=== PATIENT | male | born 1960 | race Two or more races ===

== ENCOUNTER 2022-12-30 17:44 | Inpatient (IN) | payer MEDICAID ==
[~2022-12-30] VITALS: Ht 165.1 cm; Wt 95.3 kg
--- NOTE | 2022-12-30 18:26 | NUR ---
C/O ABDOMINAL PAIN STARTED THIS MORNING +NAUSEA. VITALS ARE WITHIN NORMAL LIMITS. AWAITING EVAL.
--- NOTE | 2022-12-30 18:32 | NUR ---
URINE COLLECTED AND SENT
--- NOTE | 2022-12-30 18:59 | NUR ---
IV ESTABLISHED 22G R AC. LABS DRAWN AND SENT
[2022-12-30] MEDS ORDERED: ONDANSETRON HCL/PF 4 MG/2 ML VIAL IVP ONE (19:00)
[2022-12-30] MEDS ORDERED: MORPHINE SULFATE INJ 2 MG/ML DISP.SYRIN IV ONE (19:00)
[2022-12-30] MEDS ORDERED: IV NS 0.9% 1,000 ML BAG IV ONE (19:00)
[2022-12-30] MEDS ORDERED: ONDANSETRON HCL/PF 4 MG/2 ML VIAL ONE (19:07)
[2022-12-30] MEDS ORDERED: MORPHINE SULFATE INJ 4 MG/ML DISP.SYRIN ONE (19:08)
--- NOTE | 2022-12-30 19:23 | NUR ---
PT TAKEN TO CT VIA FELICIANO
[2022-12-30 19:29] LABS: BASOPHILS # (AUTO) 0.1 K/uL (0.0-0.2); BASOPHILS % (AUTO) 0.7 % (0.0-2.0); EOSINOPHILS % (AUTO) 0.2 % (0.0-6.0); HEMATOCRIT 45 % (39-51); HEMOGLOBIN 14.9 g/dL (13.5-17.5); LYMPHOCYTES # (AUTO) 1.1 K/uL (0.8-4.8); LYMPHOCYTES % (AUTO) 7.9 % (20.0-44.0); MEAN CORPUSCULAR HGB CONC 33 g/dl (31.0-36.0); MEAN CORPUSCULAR VOLUME 84 fL (80-96); MONOCYTES # (AUTO) 0.6 K/uL (0.1-1.30); MONOCYTES % (AUTO) 4.2 % (2.0-12.0); NEUTROPHILS # (AUTO) 12.2 K/uL (1.8-8.9); PLATELET COUNT (AUTO) 352 K/uL (150-450); RED BLOOD CELL COUNT(AUTO) 5.28 MIL/uL (4.5-6.0); WHITE BLOOD COUNT (AUTO) 14.1 K/uL (4.3-11.0)
[2022-12-30 19:36] LABS: CALCIUM, SERUM 9.4 mg/dL (8.5-10.1); CREATININE 0.8 mg/dL (0.6-1.3); POTASSIUM 3.6 mmol/L (3.5-5.1)
[2022-12-30 19:39] LABS: BILIRUBIN,URINE NEGATIVE (NEGATIVE); COLOR,URINE YELLOW (YELLOW); LEUKOCYTE ESTERASE ,URINE NEGATIVE (NEGATIVE); NITRITE, URINE NEGATIVE (NEGATIVE); PH,URINE 7.5 (5.0-8.0); PROTEIN,URINE 1+ mg/dl (NEGATIVE); UGLUCOSE NEGATIVE (NEGATIVE); UROBILINOGEN,URINE 0.2 EU/dL (0.2)
[2022-12-30 19:42] LABS: BILIRUBIN,DIRECT 0.1 mg/dL (0.0-0.2); BILIRUBIN,TOTAL 0.6 mg/dL (0.2-1.0); TOTAL PROTEIN, SERUM 8.2 g/dL (6.4-8.2)
--- NOTE | 2022-12-30 19:42 | NUR ---
Patient AOx4, able to express concerns. Patient just came back from imaging. No signs of distress or discomfort. Discussed plan of care, patietn verbalized agreement.
[2022-12-30 19:50] LABS: BACTERIA,URINE None seen /HPF (None Seen); RBC,URINE 0-2 /HPF (0-2); SQUAMOUS EPITHELIAL CELL,UR 0-2 /HPF (None Seen); URINE AMORPHOUS PHOSPHATES Moderate /HPF (None Seen); WBC,URINE 0-2 /HPF (0-3)
[2022-12-30] MEDS ORDERED: VANCOMYCIN 1 GM in IV D5W 250 ML IV ONE (20:00)
[2022-12-30] MEDS ORDERED: PIPERACI/TAZO 3.375GM/D5W 50ML PB IV ONE (20:00)
[2022-12-30] MEDS ORDERED: PIPERACILLIN /TAZOBACTAM 3.375 G in IV D5W 50 ML IV ONE (20:00)
[2022-12-30] MEDS ORDERED: VANCOMYCIN 1 GM /D5W 250 ML PB IV ONE (20:00)
--- NOTE | 2022-12-30 20:33 | NUR ---
MOVE SHEET SUBMITTED
--- NOTE | 2022-12-30 20:44 | NUR ---
GEN SURG PAGED - NO ANSWER- LEFT MESSAGE AWAITING CALLBACK
[2022-12-30] MEDS ORDERED: MAGNESIUM HYDROXIDE 30 ML UDC PO PRN (21:30)
[2022-12-30] MEDS ORDERED: MAG HYDROX/AL HYDROX/SIMETH 30 ML UDC PO PRN (21:30)
[2022-12-30] MEDS ORDERED: ACETAMINOPHEN 325 MG TABLET PO PRN (21:30)
[2022-12-30] MEDS ORDERED: ZOLPIDEM TARTRATE 5 MG TABLET PO PRN ×2 (21:30→22:45)
[2022-12-30] MEDS ORDERED: ONDANSETRON HCL/PF 4 MG/2 ML VIAL IVP PRN (21:30)
[2022-12-30] MEDS ORDERED: Z GUARD REMEDY 4 OZ OINT TP PRN ×2 (21:30→22:45)
[2022-12-30] MEDS ORDERED: MORPHINE SULFATE INJ 2 MG/ML DISP.SYRIN ONE (22:35)
[2022-12-30] MEDS: MORPHINE SULFATE INJ 2 MG/ML DISP.SYRIN IV PRN (22:36)
--- NOTE | 2022-12-31 00:30 | NUR ---
Zosyn dose not administered, last dose given at 2000
[2022-12-31] MEDS: IV NS 0.9% 1,000 ML IV PRN ×3 (02:24→22:25)
[2022-12-31] MEDS ORDERED: MORPHINE SULFATE INJ 2 MG/ML DISP.SYRIN ONE (03:23)
[2022-12-31] MEDS: MORPHINE SULFATE INJ 2 MG/ML DISP.SYRIN IV PRN ×2 (03:24→09:44)
--- NOTE | 2022-12-31 03:27 | NUR ---
Munira AOx4, able to express his concerns. Patient states pain is comming back, requesting pain medication. Patient educated on importance of remaining NPO, verbalized understanding. All safety precautions followed, will continue to monitor.
[2022-12-31 05:32] LABS: BASOPHILS # (AUTO) 0.1 K/uL (0.0-0.2); BASOPHILS % (AUTO) 0.5 % (0.0-2.0); EOSINOPHILS % (AUTO) 0.1 % (0.0-6.0); HEMATOCRIT 42 % (39-51); HEMOGLOBIN 13.9 g/dL (13.5-17.5); LYMPHOCYTES # (AUTO) 1.2 K/uL (0.8-4.8); LYMPHOCYTES % (AUTO) 8.1 % (20.0-44.0); MEAN CORPUSCULAR HGB CONC 33 g/dl (31.0-36.0); MEAN CORPUSCULAR VOLUME 84 fL (80-96); MONOCYTES # (AUTO) 1.2 K/uL (0.1-1.30); MONOCYTES % (AUTO) 7.9 % (2.0-12.0); NEUTROPHILS # (AUTO) 12.7 K/uL (1.8-8.9); NEUTROPHILS % (AUTO) 83.4 % (43.0-81.0); PLATELET COUNT (AUTO) 330 K/uL (150-450); RED BLOOD CELL COUNT(AUTO) 4.95 MIL/uL (4.5-6.0); WHITE BLOOD COUNT (AUTO) 15.2 K/uL (4.3-11.0)
[2022-12-31 05:50] LABS: CALCIUM, SERUM 8.8 mg/dL (8.5-10.1); CREATININE 0.7 mg/dL (0.6-1.3); MAGNESIUM 2.3 mg/dL (1.8-2.4); PHOSPHORUS 3.2 mg/dL (2.5-4.9); POTASSIUM 3.7 mmol/L (3.5-5.1)
[2022-12-31] MEDS ORDERED: PIPERACI/TAZO 3.375GM/D5W 50ML PB IV ONE (06:33)
[2022-12-31] MEDS: PIPERACILLIN /TAZOBACTAM 3.375 G in IV D5W 50 ML IV SCH ×4 (06:34→13:09)
[2022-12-31 07:30] VITALS: BP 156/87
--- NOTE | 2022-12-31 07:30 | NUR ---
BED ASSIGNED 306-2
--- NOTE | 2022-12-31 08:44 | NUR ---
report given to nidhi for contiuation of care
--- NOTE | 2022-12-31 08:45 | NUR ---
RECEIVED REPORT FROM ER NURSE AARTI
[2022-12-31] MEDS ORDERED: PANTOPRAZOLE 40 MG VIAL IV SCH ×2 (09:00→09:15)
--- NOTE | 2022-12-31 09:00 | NUR ---
MS DOUGH CUTTING MACHINE OPERATOR NOTES RECEIVED PT VIA GURNEY AT 0900. PT IS ALERT/ORIENTED X4, AMBULATORY, STABLE ON ROOM AIR. PAIN 10/10 ON RLQ DUE TO APPENDICITIS. IV ACCESS ON RAC #22 G SL. HAS DRY SKIN PATCHES R/T PSORIASIS, OTHERWISE SKIN INTACT. PT ON NPO STATUS. ALL BELONGINGS CHECKED. PRE VITALS TAKEN. FALL SAFETY MEASURES IN PLACED. BED LOCKED IN LOWEST POSITION, SIDE RAILS UP X2, CALL LIGHT WITHIN REACH. WILL ADMINISTER ALL SCHEDULED AND PRN MEDS. WILL CONTINUE TO MONITOR.
[2022-12-31] MEDS ORDERED: MAGNESIUM HYDROXIDE 30 ML UDC PO PRN (09:15)
[2022-12-31] MEDS ORDERED: ACETAMINOPHEN 325 MG TABLET PO PRN (09:15)
[2022-12-31] MEDS ORDERED: MAG HYDROX/AL HYDROX/SIMETH 30 ML UDC PO PRN (09:15)
[2022-12-31] MEDS ORDERED: ONDANSETRON HCL/PF 4 MG/2 ML VIAL IVP PRN (09:15)
[2022-12-31 16:00] VITALS: BP 164/85
[2022-12-31] MEDS: ZOSYN IVPB 3.375 G in IV D5W 50ml IV SCH (18:27)
--- NOTE | 2022-12-31 18:41 | NUR ---
MS RN CLOSING NOTES PT RESTING IN BED, PT IS ALERT/ORIENTED X4, AMBULATORY, STABLE ON ROOM AIR. PAIN 6/10 ON RLQ DUE TO APPENDICITIS. IV ACCESS ON L HAND #20 G SRUNNING NS @100 ML/HR, WITH IV ZOSYN INFUSING. HAS DRY SKIN PATCHES R/T PSORIASIS, OTHERWISE SKIN INTACT. PT ON NPO STATUS. SURGERY AT 8PM FOR APPENDECTOMY. ALL CONSENTS SIGNED WITH THE PATIENT. FALL SAFETY MEASURES IN PLACED. BED LOCKED IN LOWEST POSITION, SIDE RAILS UP X2, CALL LIGHT WITHIN REACH. ALL SCHEDULED ,MEDS GIVEN, WILL ENDORSE TO NEXT SHIFT.
[2022-12-31 20:00] VITALS: BP 145/88
--- NOTE | 2022-12-31 20:00 | NUR ---
RN NOTES PATIENT SENT TO OPERATING ROOM. WITH STABLE VITAL SIGNS. REPORT GIVEN TO OR NURSE. WILL CONTINUE TO MONITOR.
[2022-12-31] MEDS ORDERED: FENTANYL PF 100MCG/2ML AMPUL ONE (20:10)
[2022-12-31] MEDS ORDERED: HYDROMORPHONE INJ 2 MG/ML DISP.SYRIN ONE (20:10)
[2022-12-31] MEDS ORDERED: MEPERIDINE25 MG SYR 25 MG/ML VIAL ONE (20:10)
[2022-12-31] MEDS ORDERED: MIDAZOLAM HCL 2 MG/2ML VIAL ONE (20:10)
[2022-12-31] MEDS ORDERED: DEXAMETHASONE SOD PHOSPHATE 4 MG/ML VIAL ONE (20:10)
[2022-12-31] MEDS ORDERED: ROCURONIUM BROMIDE 50 MG/5 ML ONE (20:11)
--- NOTE | 2022-12-31 20:17 | NUR ---
RN MS OPENING NOTES PATIENT RECEIVED IN BED, AWAKE AND COHERENT. ON ROOM AIR SATURATING WELL NO SOB/ NOTED AT THIS TIME. A/O X 4 FAROESE SPEAKING. PATIENT IS CONTINENT USES URINAL. ON NPO SINCE 12/30/2022 FOR APPENDECTOMY TONIGHT. NO COMPLAIN OF PAIN OR DISCOMFORT NOTED, NO CHEST PAIN NOTED. CONSENT SIGNED AND VERIFIED FOR THE PROCEDURE, FOR ANESTHESIA CONSENT, FOR POSSIBLE BLOOD TRANSFUSION CONSENT. SURGICAL CHECKLIST DONE AND COMPLETE. WITH IV ACCESS AT LEFT HAND #20G WITH NS AT 100ML/HR INFUSING WELL NO SWELLING OR INFILTRATION NOTED AT THIS TIME. KEPT PATIENT WARM AND COMFORTABLE. WILL CONTINUE TO MONITOR.
[2022-12-31] MEDS ORDERED: ANESTHESIA TRAY IN PYXIS 1 EA TRAY MC ONE (22:03)
[2022-12-31] MEDS ORDERED: BUPIVACAINE 0.25% 75 MG/30 ML VIAL ONE (22:04)
--- NOTE | 2022-12-31 22:30 | NUR ---
RN POST-OP NOTES RECEIVED PATIENT FROM OR VIA [facility]. S/P LAPAROSCOPIC APPENDECTOMY NOTED 3 SMALL SURGICAL SITES NO BLEEDING NOTED. ON ROOM AIR SATURATING WELL. WITH IV ACCESS AT LEFT HAND #20G WITH NS1L X 100ML/HR INFUSING WELL NO SWELLING OR INFILTRATION NOTED. ON CLEAR LIQUID DIET FOR NOW. WITH VITAL SIGNS OF BP:106/60, HR:82, RR: 19, O2 SAT: 96%, TEMP: 98. NO PAIN OR DISCOMFORT NOTED, PATIENT IS AWAKE AND VERBALIZED NEEDS,INFORMED ALL ATTENDING PHYSICIANS, ALL POST-OP ORDERS CARRIED OUT, KEPT BED ON LOWER LOCKED POSITION, KEPT SIDE RAILS UP X 3 ALL THE TIME, KEPT CALL LIGHT WITHIN AT REACH. KEPT PATIENT WARM AND COMFORTABLE. WILL CONTINUE TO MONITOR.
--- NOTE | 2022-12-31 22:45 | NUR ---
RN POST-OP NOTES PATIENT IS STABLE WITH VITAL SIGNS OF BP:100/60, RR:20, HR:85, TEMP:98, O2 SAT:94%. NO PAIN OR DISCOMFORT NOTED AT THIS TIME. WILL CONTINUE TO MONITOR.
--- NOTE | 2022-12-31 23:00 | NUR ---
RN POST-OP NOTES PATIENT IS STABLE WITH VITAL SIGNS OF BP:100/60, RR:19, HR:81, TEMP:98, O2 SAT:95%. NO PAIN OR DISCOMFORT NOTED AT THIS TIME. WILL CONTINUE TO MONITOR.
--- NOTE | 2022-12-31 23:15 | NUR ---
RN POST-OP NOTES PATIENT IS STABLE WITH VITAL SIGNS OF BP:105/70, RR:20, HR:85, TEMP:97.5, O2 SAT:95%. NO PAIN OR DISCOMFORT NOTED AT THIS TIME. WILL CONTINUE TO MONITOR.
--- NOTE | 2022-12-31 23:30 | NUR ---
RN POST-OP NOTES PATIENT IS STABLE WITH VITAL SIGNS OF BP:109/70, RR:20, HR:81, TEMP:98, O2 SAT:95%. NO PAIN OR DISCOMFORT NOTED AT THIS TIME. WILL CONTINUE TO MONITOR.
--- NOTE | 2023-01-01 | NUR ---
RN POST-OP NOTES PATIENT IS STABLE WITH VITAL SIGNS OF BP:121/71, RR:20, HR:71, TEMP:98, O2 SAT:99%. NO PAIN OR DISCOMFORT NOTED AT THIS TIME. WILL CONTINUE TO MONITOR.
[2023-01-01] MEDS: ZOSYN IVPB 3.375 G in IV D5W 50ml IV SCH ×5 (00:03→23:09)
[2023-01-01 05:55] LABS: BASOPHILS % (AUTO) 0.1 % (0.0-2.0); HEMATOCRIT 39 % (39-51); HEMOGLOBIN 12.8 g/dL (13.5-17.5); LYMPHOCYTES # (AUTO) 0.5 K/uL (0.8-4.8); LYMPHOCYTES % (AUTO) 3.4 % (20.0-44.0); MEAN CORPUSCULAR HGB CONC 33 g/dl (31.0-36.0); MEAN CORPUSCULAR VOLUME 85 fL (80-96); MONOCYTES # (AUTO) 1.2 K/uL (0.1-1.30); MONOCYTES % (AUTO) 7.9 % (2.0-12.0); NEUTROPHILS # (AUTO) 13.4 K/uL (1.8-8.9); NEUTROPHILS % (AUTO) 88.6 % (43.0-81.0); PLATELET COUNT (AUTO) 291 K/uL (150-450); RED BLOOD CELL COUNT(AUTO) 4.58 MIL/uL (4.5-6.0); WHITE BLOOD COUNT (AUTO) 15.1 K/uL (4.3-11.0)
[2023-01-01 06:13] LABS: ALBUMIN 2.8 g/dL (3.4-5.0); BILIRUBIN,TOTAL 1.1 mg/dL (0.2-1.0); CALCIUM, SERUM 8.5 mg/dL (8.5-10.1); CREATININE 0.8 mg/dL (0.6-1.3); MAGNESIUM 2.1 mg/dL (1.8-2.4); PHOSPHORUS 3.1 mg/dL (2.5-4.9); POTASSIUM 3.6 mmol/L (3.5-5.1); TOTAL PROTEIN, SERUM 6.6 g/dL (6.4-8.2)
--- NOTE | 2023-01-01 06:25 | NUR ---
RN MS CLOSING NOTES PATIENT IS IN BED, A/O X 4 AUSTRIAN SPEAKING BUT ABLE TO UNDERSTAND NIUEAN. STATUS POST LAPAROSCOPIC APPENDECTOMY WITH SURGICAL SITE NOTED NO BLEEDING NOTED. ON ROOM AIR SATURATING WELL NO /SOB NOTED AT THIS TIME. WITH IV ACCESS AT LEFT HAND #20G WITH NS AT 90ML/HR INFUSING WELL NO INFILTRATION OR SWELLING NOTED AT THIS TIME. ON CLEAR LIQUID DIET NO ASPIRATION NOTED, INSTRUCTED TO DO INCENTIVE SPIROMETRY. NO PAIN OR DISCOMFORT NOTED AT THIS TIME.ALL DUE MEDICATIONS GIVEN, ALL NEEDS ATTENDED. PM CARE RENDERED. KEPT BED ON LOWER LOCKED POSITION, KEPT SIDE RAILS UP X 2 ALL THE TIME, KEPT CALL LIGHT WITHIN AT REACH. WILL ENDORSED TO NEXT SHIFT FOR GEORGE.
[2023-01-01 07:00] VITALS: BP 107/59
--- NOTE | 2023-01-01 07:40 | NUR ---
RN MS OPENING NOTES RECEIVED PATIENT AWAKE IN BED, A/O X 4, UZBEK SPEAKING BUT ABLE TO UNDERSTAND KOREAN. STATUS POST LAPAROSCOPIC APPENDECTOMY WITH NO BLEEDING NOTED ON SURGICAL SITE. ON ROOM AIR SATURATING WELL, NOT IN ANY FORM OF RESPIRATORY DISTRESS, WITH NON LABORED, AND EVEN BREATHING PATTERN. NO /SOB NOTED AT THIS TIME. WITH IV ACCESS AT LEFT HAND #20G WITH NS AT 90ML/HR INFUSING WELL,NO INFILTRATION OR SWELLING NOTED. ON CLEAR LIQUID DIET, NO ASPIRATION NOTED, INSTRUCTED TO DO INCENTIVE SPIROMETRY. NO PAIN OR DISCOMFORT NOTED AT THIS TIME.SAFETY MEASURES MAINTAINED, KEPT BED ON LOWER LOCKED POSITION, KEPT SIDE RAILS UP X 2 ALL THE TIME, KEPT CALL LIGHT WITHIN AT REACH. WILL CONTINUE TO MONITOR AND ASSIST THROUGHOUT THE SHIFT.
[2023-01-01] MEDS: IV NS 0.9% 1,000 ML IV PRN ×2 (11:39→23:51)
[2023-01-01 16:00] VITALS: BP 102/64
--- NOTE | 2023-01-01 18:52 | NUR ---
MS RN CLOSING NOTES PATIENT AWAKE IN BED, A/O X 4, GEORGIAN SPEAKING BUT ABLE TO UNDERSTAND PERSIAN. STATUS POST LAPAROSCOPIC APPENDECTOMY WITH NO BLEEDING NOTED ON SURGICAL SITE. ON ROOM AIR SATURATING WELL, NOT IN ANY FORM OF RESPIRATORY DISTRESS, WITH NON LABORED, AND EVEN BREATHING PATTERN. WITH IV ACCESS AT LEFT HAND #20G WITH NS AT 90ML/HR INFUSING WELL,NO INFILTRATION OR SWELLING NOTED. ON CLEAR LIQUID DIET, NO ASPIRATION NOTED. NO PAIN OR DISCOMFORT NOTED AT THIS TIME.SAFETY MEASURES MAINTAINED, KEPT BED ON LOWER LOCKED POSITION, KEPT SIDE RAILS UP X 2, KEPT CALL LIGHT WITHIN REACH. WILL ENDORSE TO PM SHIFT FOR GEORGE.
--- NOTE | 2023-01-01 19:30 | NUR ---
MS RN OPENING NOTES RECEIVED PT AWAKE IN BED, WATCHING TV AT THIS TIME. A/O X4, ZAMBIAN SPEAKING BUT ABLE TO UNDERSTAND YORUBA. S/P LAPAROSCOPIC APPENDECTOMY WITH NO BLEEDING NOTED ON SURGICAL SITE. C/O MINOR DISCOMFORT WITH MOVEMENT BUT REFUSED PAIN MED AT THIS TIME. ON ROOM AIR SATURATING WELL, NOT IN ANY FORM OF RESPIRATORY DISTRESS, WITH NON LABORED, AND EVEN BREATHING PATTERN. IV ACCESS AT LEFT HAND #20G WITH NS AT 90ML/HR INFUSING WELL,NO INFILTRATION OR SWELLING NOTED. ON CLEAR LIQUID DIET, NO ASPIRATION NOTED. SAFETY MEASURES IN PLACE: BED LOCKED AND IN LOW POSITION, SIDE RAILS UP X2, CALL LIGHT AND TRAY TABLE WITHIN REACH. WILL CONTINUE TO MONITOR AND ASSIST.
[2023-01-01 20:00] VITALS: BP 119/67
[2023-01-01] MEDS: MORPHINE SULFATE INJ 2 MG/ML DISP.SYRIN IV PRN (23:16)
[2023-01-02] MEDS: MORPHINE SULFATE INJ 2 MG/ML DISP.SYRIN IV PRN ×3 (03:49→13:20)
[2023-01-02] MEDS: ZOSYN IVPB 3.375 G in IV D5W 50ml IV SCH (05:14)
[2023-01-02 07:00] VITALS: BP 119/70
--- NOTE | 2023-01-02 07:00 | NUR ---
MS RN CLOSING NOTES PT RESTING IN BED AT THIS TIME. A/O X4, NEPALI SPEAKING BUT ABLE TO UNDERSTAND GREEK. S/P LAPAROSCOPIC APPENDECTOMY WITH NO BLEEDING NOTED ON SURGICAL SITE. C/O PAIN 03/10, REQUESTING PAIN MED. EXPLAINED MED IS NOT DUE AT THIS TIME, VERBALIZED UNDERSTANDING. STABLE ON ROOM AIR SATURATING WELL, NOT IN ANY FORM OF RESPIRATORY DISTRESS, WITH NON LABORED, AND EVEN BREATHING PATTERN. IV ACCESS AT LEFT HAND #20G WITH NS AT 90ML/HR INFUSING WELL,NO INFILTRATION OR SWELLING NOTED. ON CLEAR LIQUID DIET, NO ASPIRATION NOTED. ALL CARE PROVIDED AND MEDS TOLERATED WELL. SAFETY MEASURES MAINTAINED: BED LOCKED AND IN LOW POSITION, SIDE RAILS UP X2, CALL LIGHT AND TRAY TABLE WITHIN REACH. WILL ENDORSE GEORGE TO DAY SHIFT NURSE. Addendum: 01/02/23 at 0722 by OLGA LARA RN TOTAL URINAL OUTPUT: 700 ML
--- NOTE | 2023-01-02 07:57 | NUR ---
MS RN OPENING NOTES RECEIVED PATIENT ASLEEP IN BED,AROUSED EASILY, A/O X4, S/P LAPAROSCOPIC APPENDECTOMY WITH NO BLEEDING NOTED ON SURGICAL SITE. STABLE ON ROOM AIR SATURATING WELL, NOT IN ANY FORM OF RESPIRATORY DISTRESS, WITH NON LABORED, AND EVEN BREATHING PATTERN. IV ACCESS AT LEFT HAND #20G WITH NS AT 90ML/HR INFUSING WELL,NO INFILTRATION OR SWELLING NOTED. ALL CARE SAFETY MEASURES MAINTAINED: BED LOCKED AND IN LOW POSITION, SIDE RAILS UP X2, CALL LIGHT AND TRAY TABLE WITHIN REACH. WILL CONTINUE TO MONITOR AND ASSIST DURING SHIFT.
[2023-01-02] MEDS: PANTOPRAZOLE 40 MG/PACK PACK PO SCH (08:10)
--- NOTE | 2023-01-02 08:11 | NUR ---
RN NOTES PATIENT COMPLAINED OF PAIN WITH A RATE OF 10/10 PER PAIN SCALE. ADMINISTERED MORPHINE 2MG/ML PRN FOR PAIN.
[2023-01-02 09:16] LABS: BASOPHILS % (AUTO) 0.2 % (0.0-2.0); EOSINOPHILS % (AUTO) 0.4 % (0.0-6.0); HEMATOCRIT 42 % (39-51); HEMOGLOBIN 13.9 g/dL (13.5-17.5); LYMPHOCYTES # (AUTO) 1.6 K/uL (0.8-4.8); LYMPHOCYTES % (AUTO) 12.8 % (20.0-44.0); MEAN CORPUSCULAR HGB CONC 33 g/dl (31.0-36.0); MEAN CORPUSCULAR VOLUME 85 fL (80-96); MONOCYTES # (AUTO) 1.1 K/uL (0.1-1.30); NEUTROPHILS # (AUTO) 9.5 K/uL (1.8-8.9); NEUTROPHILS % (AUTO) 77.6 % (43.0-81.0); PLATELET COUNT (AUTO) 338 K/uL (150-450); RED BLOOD CELL COUNT(AUTO) 4.99 MIL/uL (4.5-6.0); WHITE BLOOD COUNT (AUTO) 12.2 K/uL (4.3-11.0)
--- NOTE | 2023-01-02 09:20 | NUR ---
RN NOTES REASSESSED PAIN, 0/10, PATIENT WELL RESTED AND ABLE TO SLEEP WELL.
[2023-01-02 09:26] LABS: CALCIUM, SERUM 8.9 mg/dL (8.5-10.1); CREATININE 0.9 mg/dL (0.6-1.3); POTASSIUM 3.7 mmol/L (3.5-5.1)
[2023-01-02] MEDS: PIPERACILLIN /TAZOBACTAM 3.375 G in IV D5W 100 ML IV SCH ×2 (12:53→20:12)
--- NOTE | 2023-01-02 13:20 | NUR ---
RN NOTES PATIENT COMPLAINED OF PAIN 7/10 PER PAIN SCALE. ADMINISTERED MORPHINE 2MG/ML Q4H PRN FOR PAIN. PATIENT ALSO HAD AN EPISODE OF VOMITING, APPROXIMATELY 15CC OF CLEAR FLUID SECRETIONS.
[2023-01-02 16:00] VITALS: BP 146/97
[2023-01-02] MEDS: IV NS 0.9% 1,000 ML IV PRN (16:01)
--- NOTE | 2023-01-02 16:19 | NUR ---
RN NOTES: PATIENT COMPLAINING NO BM X 5 DAYS. ENCOURAGED PT TO WALK AND WE WALKED IN THE AISLE AND PRUNE JUICE GIVEN. PATIENT VOMITED ONCE AND ZOFRAN IV GIVEN. DR REEVES ORDERED COLACE 100MG PO BID, LACTULOSE 30ML PO ONCE ONLY, SENNA 2 TABS PO PRN @HS. ORDERS NOTED AND CARRIED OUT.
[2023-01-02] MEDS ORDERED: SENNOSIDES/DOCUSATE SODIUM 1 TAB TABLET PO PRN (16:30)
[2023-01-02] MEDS ORDERED: LACTULOSE 10 G/15 ML UDC (PYXIS) PO ONE (16:30)
[2023-01-02] MEDS: DOCUSATE SODIUM 100 MG CAPSULE PO SCH (16:31)
--- NOTE | 2023-01-02 18:36 | NUR ---
RN CLOSING NOTES: PATIENT ASLEEP IN BED,AROUSED EASILY, A/O X4, S/P LAPAROSCOPIC APPENDECTOMY WITH NO BLEEDING NOTED ON SURGICAL SITE.STABLE ON ROOM AIR SATURATING WELL, NOT IN ANY FORM OF RESPIRATORY DISTRESS, WITH NON LABORED, AND EVEN BREATHING. IV ACCESS AT LEFT HAND #20G WITH NS AT 90ML/HR INFUSING WELL,NO INFILTRATION OR SWELLING NOTED. ALL CARE SAFETY MEASURES MAINTAINED: BED LOCKED AND IN LOW POSITION, SIDE RAILS UP X2, CALL LIGHT AND TRAY TABLE WITHIN REACH. WILL ENDORSE TO PM SHIFT FOR GEORGE.
--- NOTE | 2023-01-02 19:00 | NUR ---
RN OPENING NOTE RECEIVED PT AWAKE IN BED. PT IS A/O X 4, ABLE TO MAKE NEEDS KNOWN. PT IS IN RA TOLERATING WELL, BREATHING EVEN AND UNLABORED @ THIS TIME. PT IV PRESENT IN LEFT HAND #20G RUNNING NS @100MLS/HR, PATENT, INTACT AND FLUSHES WELL W/ NO S&SX OF INFILTRATION @ SITE NOTED. PT HAS A URINAL ON BEDSIDE. SAFETY MEASURES IS IN PLACE. BED IN LOWEST AND LOCKED POSITION. SIDERAILS X 2. BEDSIDE TABLE AND CALL LIGHT IS EASY REACH. BED ALARM IS ON. WILL CONTINUE TO MONITOR PT ACCORDINGLY.
--- NOTE | 2023-01-02 19:11 | NUR ---
RN NOTES: PATIENT HAD BM SMALL, PT UNABLE TO TOLERATE MECHANICAL SOFT FOR NOW. MD MADE AWARE.
[2023-01-02 20:44] VITALS: BP 133/84
[2023-01-03] MEDS: MORPHINE SULFATE INJ 2 MG/ML DISP.SYRIN IV PRN ×2 (00:55→20:31)
[2023-01-03] MEDS: PIPERACILLIN /TAZOBACTAM 3.375 G in IV D5W 100 ML IV SCH ×3 (04:04→20:18)
[2023-01-03 05:59] LABS: BASOPHILS % (AUTO) 0.2 % (0.0-2.0); EOSINOPHILS % (AUTO) 0.7 % (0.0-6.0); HEMATOCRIT 39 % (39-51); HEMOGLOBIN 13.3 g/dL (13.5-17.5); LYMPHOCYTES # (AUTO) 1.2 K/uL (0.8-4.8); LYMPHOCYTES % (AUTO) 13.6 % (20.0-44.0); MEAN CORPUSCULAR HGB CONC 34 g/dl (31.0-36.0); MEAN CORPUSCULAR VOLUME 84 fL (80-96); MONOCYTES % (AUTO) 11.6 % (2.0-12.0); NEUTROPHILS # (AUTO) 6.7 K/uL (1.8-8.9); NEUTROPHILS % (AUTO) 73.9 % (43.0-81.0); PLATELET COUNT (AUTO) 346 K/uL (150-450); RED BLOOD CELL COUNT(AUTO) 4.68 MIL/uL (4.5-6.0)
[2023-01-03 06:15] LABS: CALCIUM, SERUM 8.6 mg/dL (8.5-10.1); CREATININE 0.7 mg/dL (0.6-1.3); POTASSIUM 3.4 mmol/L (3.5-5.1)
--- NOTE | 2023-01-03 06:43 | NUR ---
RN CLOSING NOTE PT AWAKE & RESTING COMFORTABLY IN BED. PT IS A/O X 4, RESPONSIVE & FOLLOWS VERBAL COMMAND. PT IS IN RA W/ NO S&SX OF RESPIRATORY DISTRESS @ THIS TIME. PT IV PRESENT IN LEFT HAND #20G RUNNING NS @100MLS/HR, PATENT, INTACT AND FLUSHES WELL W/ NO S&SX OF INFILTRATION @ SITE NOTED. SAFETY MEASURES IS IN PLACE. BED IN LOWEST AND LOCKED POSITION. SIDERAILS X 2. BEDSIDE TABLE AND CALL LIGHT IS EASY REACH. BED ALARM IS ON. WILL ENDORSE TO THE NEXT SHIFT FOR GEORGE.
--- NOTE | 2023-01-03 07:46 | NUR ---
MS RN OPENING NOTES RECEIVED PATIENT AWAKE IN BED, TALKING TO THE SPECIAL EDUCATION PRESCHOOL TEACHER, A/O X4, POLISH SPEAKING BUT ABLE TO UNDERSTAND SIMPLE SYRIAC, S/P LAPAROSCOPIC APPENDECTOMY, SURGICAL SITE C/D/I. STABLE ON ROOM AIR WITHOUT ANY NOTED RESPIRATORY DISTRESS. IV ACCESS AT LEFT HAND #20G WITH NS RUNNING 100ML/HR INFUSING WELL. NO S/SX OF INFILTRATION. HEALTH TEACHINGS DONE REGARDING THE USE OF INCENTIVE SPIROMETRY. NO COMPLAINTS OF N/V NOR PAIN AT THE MOMENT. SAFETY MEASURES IN PLACE: BED LOCKED AND IN LOWEST POSITION, SIDE RAILS UP X2, CALL LIGHT AND TRAY TABLE WITHIN EASY REACH. WILL CONTINUE TO MONITOR DURING THE SHIFT.
[2023-01-03 08:00] VITALS: BP 129/68
[2023-01-03] MEDS: POTASSIUM CHLORIDE 20 MEQ TAB.PRT.SR PO SCH (09:01)
[2023-01-03] MEDS: DOCUSATE SODIUM 100 MG CAPSULE PO SCH ×2 (09:01→17:20)
[2023-01-03] MEDS: PANTOPRAZOLE 40 MG/PACK PACK PO SCH (09:01)
--- NOTE | 2023-01-03 09:07 | NUR ---
RN NOTES- DOCUSATE SODIUM DROPPED, TOOK ANOTHER ONE FROM [employer].
[2023-01-03] MEDS: IV NS 0.9% 1,000 ML IV PRN (12:52)
[2023-01-03 16:00] VITALS: BP 131/80
--- NOTE | 2023-01-03 17:53 | NUR ---
RN NOTES - OSIEL WALLACE GAVE AN OKAY TO DISCHARGE, HOSPITALIST LALA AGREED TO DC TOMORROW TO HAVE PAIN MEDICATION ORDER.
--- NOTE | 2023-01-03 19:24 | NUR ---
MS RN OPENING NOTE RECEIVED PT AWAKE IN BED. A/O X4, QATARI SPEAKING, AND ABLE TO MAKE NEEDS KNOWN. PT STABLE ON ROOM AIR. NO SOB OR S/S OF RESPIRATORY DISTRESS. BREATHING EVEN AND UNLABORED. IV ACCESS L HAND 20G, INTACT AND PATENT, RUNNING NS @ 100 ML/HR. NO COMPLAINTS OF PAIN OR DISCOMFORT AT THIS TIME. SAFETY PRECAUTIONS IN PLACE. BED IN LOWEST LOCKED POSITION, HOB ELEVATED, SIDE RAILS UP X2, AND CALL LIGHT AND TABLE WITHIN REACH. ALL NEEDS MET AT THIS TIME.
--- NOTE | 2023-01-03 19:27 | NUR ---
RN NOTES - PATIENT GAVE [phone] PHONE NUMBER FOR MS YA HENRIQUEZ, "EX MOTHER IN LAW", CALLED THE NUMBER AND SPOKE TO MS. HENRIQUEZ, CONFIRMED THAT SHE KNOWS THE PATIENT AND WILL CALL THE CLOSEST RELATIVE, GIVEN THE NUMBER TO [phone] TO CALL BACK. RELAYED TO THE NURSE. Addendum: 01/03/23 at 1929 by ISABELLE CAT RN ERRATUM: WRONG PATIENT
--- NOTE | 2023-01-03 19:35 | NUR ---
MS RN CLOSING NOTES PATIENT LYING IN BED, AWAKE, A/O X4, STILL STABLE ON ROOM AIR WITHOUT ANY NOTED RESPIRATORY DISTRESS. IV ACCESS AT LEFT HAND #20G WITH NS RUNNING 100ML/HR INFUSING WELL. NO S/SX OF INFILTRATION. NO N/V DURING MY SHIFT. FOR DISCHARGE TOMORROW. ALL DUE MEDS GIVEN, ALL NEEDS MET. SAFETY MEASURES IN PLACE: BED LOCKED AND IN LOWEST POSITION, SIDE RAILS UP X2, CALL LIGHT AND TRAY TABLE WITHIN EASY REACH. ENDORSED TO EMERGENCY MANAGER NURSE.
--- NOTE | 2023-01-03 19:42 | NUR ---
RN NOTE PT NOTED WITH SLIGHT FEVER OF 100.4 AND MILD ABDOMINAL DISCOMFORT. COOLING MEASURES RENDERED. ADMINISTERED TYLENOL 650 MG FOR MILD PAIN AND FEVER ORDERED. MADE COMFORTABLE IN BED. ALL NEEDS MET AT THIS TIME.
[2023-01-03 20:00] VITALS: BP 129/83
--- NOTE | 2023-01-03 20:32 | NUR ---
RN NOTE PT COMPLAINED OF ABDOMINAL PAIN 05/10. STATED IT STARTED AFTER HE DRANK SOME MILK. ADMINISTERED MORPHINE 2 MG FOR SEVERE PAIN ORDERED. MADE COMFORTABLE IN BED. ALL NEEDS MET AT THIS TIME.
--- NOTE | 2023-01-03 21:30 | NUR ---
RN NOTE PT WITH SEVERE ABDOMINAL PAIN NOT RELIEVED BY MEDICATION. NOT TOLERATING DIET. INFORMED SOLAR ENERGY SALES SPECIALIST FORMERLY [facility], [facility]–1983 WITH NEW ORDER FOR STAT KUB. ORDER NOTED AND CARRIED OUT. RADIOLOGY AT BEDSIDE NOW.
--- NOTE | 2023-01-03 22:09 | NUR ---
RN NOTE KUB RESULTED AND INFORMED SERVICE PROVIDER KEH OF RESULTS WITH NEW ORDER FOR NPO AND DULCOLAX SUPPOSITORY ONCE. ORDERS NOTED AND CARRIED OUT. CHARGE NURSE HAIDER LOPEZ.
[2023-01-03] MEDS ORDERED: BISACODYL SUPP (10 MG) 10 MG/SUPP.RECT SUPP.RECT RC ONE (22:30)
--- NOTE | 2023-01-04 01:20 | NUR ---
RN NOTES: SEEN AND EXAMINED BY INTERNAL CONTROLS ANALYST CAIN- INFORMED CAIN THAT PT IS AMBULATORY AND ABLE TO TOLERATE HIS DIET. SURGICAL INCISION IN PLACE WITHOUT ANY SIGN AND SYMPTOMS OF BLEEDING/INFECTION. F/U WITH DR CARTAGENA IN 1-2 WEEKS.
[2023-01-04] MEDS: MORPHINE SULFATE INJ 2 MG/ML DISP.SYRIN IV PRN (03:19)
--- NOTE | 2023-01-04 03:20 | NUR ---
RN NOTE PT COMPLAINED OF ABDOMINAL PAIN 04/10. EDUCATED PT ON THE IMPORTANCE OF STAYING NPO, PT VERBALIZED UNDERSTANDING. ADMINISTERED MORPHINE 2 MG FOR SEVERE PAIN ORDERED. MADE COMFORTABLE IN BED. ALL NEEDS MET AT THIS TIME.
[2023-01-04] MEDS: PIPERACILLIN /TAZOBACTAM 3.375 G in IV D5W 100 ML IV SCH ×2 (04:27→12:40)
[2023-01-04 06:18] LABS: BASOPHILS % (AUTO) 0.2 % (0.0-2.0); EOSINOPHILS % (AUTO) 2.6 % (0.0-6.0); HEMATOCRIT 38 % (39-51); HEMOGLOBIN 12.8 g/dL (13.5-17.5); LYMPHOCYTES # (AUTO) 0.8 K/uL (0.8-4.8); LYMPHOCYTES % (AUTO) 11.4 % (20.0-44.0); MEAN CORPUSCULAR HGB CONC 34 g/dl (31.0-36.0); MEAN CORPUSCULAR VOLUME 84 fL (80-96); MONOCYTES # (AUTO) 1.1 K/uL (0.1-1.30); MONOCYTES % (AUTO) 16.3 % (2.0-12.0); NEUTROPHILS # (AUTO) 4.8 K/uL (1.8-8.9); NEUTROPHILS % (AUTO) 69.5 % (43.0-81.0); PLATELET COUNT (AUTO) 375 K/uL (150-450); RED BLOOD CELL COUNT(AUTO) 4.45 MIL/uL (4.5-6.0); WHITE BLOOD COUNT (AUTO) 6.9 K/uL (4.3-11.0)
--- NOTE | 2023-01-04 06:43 | NUR ---
MS RN CLOSING NOTE PT RESTING IN BED, VERBALLY RESPONSIVE. A/O X4, ARABIC SPEAKING, AND ABLE TO MAKE NEEDS KNOWN. PT STABLE ON ROOM AIR. NO SOB OR S/S OF RESPIRATORY DISTRESS. BREATHING EVEN AND UNLABORED. IV ACCESS L HAND 20G, INTACT AND PATENT, RUNNING ZOSYN @ 25 ML/HR. NO COMPLAINTS OF PAIN OR DISCOMFORT AT THIS TIME. ALL DUE MEDS GIVEN ORDERED. KEPT NPO. SAFETY PRECAUTIONS IN PLACE AT ALL TIMES. BED IN LOWEST LOCKED POSITION, HOB ELEVATED, SIDE RAILS UP X2, AND CALL LIGHT AND TABLE WITHIN REACH. ALL NEEDS MET AT THIS TIME AND WILL ENDORSE TO ONCOMING NURSE FOR GEORGE.
[2023-01-04 07:02] LABS: CALCIUM, SERUM 8.7 mg/dL (8.5-10.1); CREATININE 0.7 mg/dL (0.6-1.3); POTASSIUM 3.6 mmol/L (3.5-5.1)
--- NOTE | 2023-01-04 07:46 | NUR ---
MS RN OPENING NOTES RECEIVED PATIENT RESTING IN BED, VERBALLY RESPONSIVE. A/O X4, TAMAZIGHT SPEAKING, AND ABLE TO MAKE NEEDS KNOWN. PT STABLE ON ROOM AIR. NO SOB OR S/S OF RESPIRATORY DISTRESS. WITH EVEN AND NONLABORED BREATHING. PATIENT VOMITTED APPROXIMATELY 20CC THIS AM. IV ACCESS L HAND 20G, INTACT AND PATENT. NO COMPLAINTS OF PAIN OR DISCOMFORT AT THIS TIME. ON NPO. SAFETY PRECAUTIONS IN PLACE AT ALL TIMES. BED IN LOWEST LOCKED POSITION, HOB ELEVATED, SIDE RAILS UP X2, CALL LIGHT AND TABLE WITHIN REACH.
[2023-01-04 08:00] VITALS: BP 120/87
[2023-01-04] MEDS: PANTOPRAZOLE 40 MG/PACK PACK PO SCH (08:17)
[2023-01-04] MEDS: POTASSIUM CHLORIDE 20 MEQ TAB.PRT.SR PO SCH (08:17)
[2023-01-04] MEDS: DOCUSATE SODIUM 100 MG CAPSULE PO SCH (08:17)
--- NOTE | 2023-01-04 08:30 | NUR ---
RN NOTES DR. BHAKTA INFORMED POTASSIUM LEVEL 3.6, PATIENT HAS AN EPISODE OF VOMITING.DR. BHAKTA ORDERED TO DISCONTINUE KCL PO 40MEQS DAILY, MADE NEW ORDER KCL 20MEQS IV ONCE ONLY. ORDERS NOTED AND CARRIED OUT.
[2023-01-04] MEDS: POTASSIUM CL. PREMIX PERIPHER. 50 ML IV SCH ×2 (09:27→10:39)
--- NOTE | 2023-01-04 10:36 | NUR ---
RN NOTES DEVON HEALY INSERTED IV ACCESS ON RIGHT HAND G22, PATENT, INTACT, AND FLUSHING WELL.
--- NOTE | 2023-01-04 10:45 | NUR ---
RN NOTES SEEN AND EXAMINED AT BEDSIDE BY DR. BHAKTA, DIET SWITCHED FROM NPO TO CARDIAC (LOW FAT,LOW CHOLESTEROL). ORDERS NOTED AND CARRIED OUT.
[2023-01-04] MEDS ORDERED: CIPR-262 PO (10:53)
[2023-01-04] MEDS ORDERED: DOCU100C36 PO (10:54)
[2023-01-04] MEDS ORDERED: SIMETHICONE 80 MG TAB.CHEW PO SCH (11:00)
--- NOTE | 2023-01-04 12:50 | NUR ---
RN NOTES INFORMED DR BHAKTA PT ABLE TO TOLERATE DIET.
--- NOTE | 2023-01-04 14:00 | NUR ---
COAL MINE INSPECTOR NOTES: PATIENT DC HOME, PICKED UP BY HIS FRIEND. PT A/O X 4 AZERI SPEAKING ABLE TO VERBALIZE NEEDS, NO SOB OR CARDIAC DISTRESS NOTED. PT DENIES ANY PAIN AT THIS TIME. DC PACKET AND INSTRUCTIONS GIVEN TO PT: FOLLOW UP CHECK UP WITH PCP IN A WEEK, FOLLOW UP WITH DR CARTAGENA (SURGEON) IN 1-2 WEEKS, DR CARTAGENA'S CLINIC OFFICE ADDRESS AND PHONE NUMBER PROVIDED. INSTRUCTED PT WILL CONTINUE ORAL ANTIBIOTICS FOR 5 MORE DAYS, PT VERBALIZED UNDERSTANDING. IV ACCESS REMOVED AND IDENTIFICATION BAND REMOVED. PT LEFT THE UNIT AMBULATORY.
== END 2023-01-04 14:00 | disposition home or self-care (01) | DRG 233 ==
LOC: ER 18:15 → MED 12-31 09:11
PROVIDERS: ADMIT Nurse Practitioner Acute Care; ATTEND Nurse Practitioner Acute Care
PROC: 0DTJ4ZZ Resection of Appendix, Percutaneous Endoscopic Approach (ICD-10-PCS; principal; 2022-12-31)
PROC: 3E1M48Z Irrigation of Peritoneal Cavity using Irrigating Substance, Percutaneous Endoscopic Approach (ICD-10-PCS; 2022-12-31)
DX: K35.32 Acute appendicitis with perforation, localized peritonitis, and gangrene, without abscess (principal); E66.9 Obesity, unspecified; F17.210 Nicotine dependence, cigarettes, uncomplicated; K57.30 Diverticulosis of large intestine without perforation or abscess without bleeding; K80.20 Calculus of gallbladder without cholecystitis without obstruction; Z68.34 Body mass index [BMI] 34.0-34.9, adult; F10.10 Alcohol abuse, uncomplicated; K38.1 Appendicular concretions; R11.2 Nausea with vomiting, unspecified
CPT/HCPCS: 36415; 71045-TC; 74018; 80048-TC; 80053-TC; 80076-TC; 81001; 83690-TC; 83735-TC; 84100-TC; 85025-TC; 85730-TC; 86850-TC; 87040-TC; 87081-TC; 88304-TC; A4223; C9113; C9803; G0378; J0330; J0690; J1100; J1170; J1885; J2175; J2250; J2270; J2405; J2543; J2704; J2765; J3010; J3370; J3480; J3490; J7030; J7060